=== PATIENT | male | born 1985 | race Caucasian/White ===

== ENCOUNTER 2017-01-30 01:49 | Emergency (ER) | payer SELFPAY ==
[2017-01-30 03:27] VITALS: BP 152/79
== END 2017-01-30 03:27 | disposition home or self-care (01) ==
LOC: ED 01:49
DX: M77.9 Enthesopathy, unspecified (principal); J45.909 Unspecified asthma, uncomplicated
CPT/HCPCS: A4570; J1885; J2001; J7512; Q0092